=== PATIENT | male | born 1990 | race Caucasian/White ===

== ENCOUNTER 2024-08-17 12:01 | Inpatient (IN) | payer BC, SELFPAY ==
[2024-08-17 08:05] VITALS: BP 145/95
--- NOTE | 2024-08-17 08:13 | ED.GENMED ---
History of Present Illness
General
Chief Complaint: Abdominal Symptoms
Source: patient
Exam Limitations: none
Time Seen by Provider: 08/17/24 08:10
History of Present Illness
History of Present Illness:
See MDM
Past History
Past History
ED Past Medical History: None
ED Past Surgical History: None
Social History
Tobacco: Non-smoker
Alcohol: Occasional
Personal: Single
Living: with family
Employment: Employed
Phy Exam
Physical Exam
Physical Exam:
See MDM
Course
Orders/Labs/Results
Orders:
Orders
08/17/24 08:12
CT Abd/pelvis W Iv Cont Urgent
Comment:
Reason For Exam: lower mid abd pain\\
08/17/24 08:27
Anti Streptolysin Urgent
Complete Blood Count/With Diff Urgent
Comprehensive Metabolic Panel Urgent
Serum Osmolality Urgent
08/17/24 08:58
0.9% Sodium Chloride 1000 ml [Nss] 1,000 ml IV BOLUS
08/17/24 09:52
Consult Nephrology [NEPHROLOGY CONSULT] Routine
Consulting Provider: Rocky Williamson V.
Was physician already notified: Yes
08/17/24 Lunch
Regular
At Your Request: Full Participation
Does patient need a safe tray?: No
08/17/24 10:14
Protein/Creat Ratio (Random) Urgent
Date Specimen was Collected: 08/17/24
Time Specimen was Collected: 10:09
Urinalysis Reflex To Culture Urgent
Date Specimen was Collected: 08/17/24
Time Specimen was Collected: 10:08
Urine Creatinine Urgent
Date Specimen was Collected: 08/17/24
Time Specimen was Collected: 10:09
Urine Microscopic Reflex Cult Urgent
Urine Osmolality Random [Osmolality, Random Urine] Urgent
Date Specimen was Collected: 08/17/24
Time Specimen was Collected: 10:09
Urine Sodium Urgent
Date Specimen was Collected: 08/17/24
Time Specimen was Collected: 10:09
08/17/24 11:11
Add On- LAB R STAT
Tests Added?: urine random protein to creatinine ratio
08/17/24 11:13
Renal & Bladder US [US Renal With Bladder] Routine
Comment:
Reason For Exam: GAURAV
08/17/24 11:30
0.9% Sodium Chloride 1000 ml [Nss] 1,000 ml IV 125 mls/hr
08/17/24 11:45
Admit/Transfer Patient As Directed
Co-Sign Provider:
Level of Care: Inpatient admission
Assign to:: Telemetry
Physician / Group: Moises Velez
Diagnosis: Acute kidney injury
Reason for Telemetry: Arrhythmia
Date to Stop Telemetry: 08/20/24
Time to Stop Telemetry: 11:00
Reason for Hospitalization: Acute kidney injury, likely GN, need
Expected length of stay greater than two midnights?: Yes
ELOS- Estimated Length of Stay in days: 4
I certify the patient meets the requirements for IP care: Yes
PRN Pain Medication Management As Directed
May give lesser potent ordered pain med per pt: Yes
preference::
Protocol:: Medication orders for pain may be administered in a
manner that supports deferring to patient preference
when the pt is:
- Requesting an ordered lesser potent pain medication.
Least to most potent pain medications are defined
as: acetaminophen < NSAID < tramadol < opioids
(morphine, oxycodone, hydromorphone).
- Requesting a lesser dose of the same medication IF
ORDERED.
- Requesting a less intrusive route of administration
if both routes are prescribed by the provider (PO <
IV).
08/17/24 11:46
Code Status As Directed
Resuscitation Status: Full Code
08/17/24 12:00
MethylPREDNISolone. [Solu-Medrol] 1,000 mg 0.9% Sodium Chloride 250 ml [Nss] 250 ml IV DAILY
08/17/24 12:36
BOB, IgG Reflex to HEp-2 [S] Routine
ANCA - MPO/PR3 Ab Profile [S] Routine
CPK [Creatine Phosphokinase] Urgent
Complement C3 Urgent
Complement C4 Urgent
Glomerular Base Membrane Ab [S] Routine
Hepatitis A Antibody, Total Urgent
Hepatitis B Core Ab, Total Urgent
Hepatitis B Surface Antibody Urgent
Hepatitis B Surface Antigen Urgent
Hepatitis C Antibody Urgent
08/17/24 13:01
Acetaminophen [Tylenol] 650 mg PO Q4HPRN PRN
Bisacodyl [Dulcolax] 10 mg RECTAL [id number] PRN
Docusate W/Senna [Senokot-S] 1 tablet PO BIDPRN PRN
Ondansetron Injectable [Zofran] 4 mg IV Q6HPRN PRN
Polyethylene Glycol Powder [Miralax] 17 grams PO DAILYPRN PRN
08/17/24 13:01
Activity As Directed
Activity Level: Out of Bed-Early Mobility
Intake/ Output As Directed
Frequency: q12h
Vital Signs As Directed
Frequency: Per unit guidelines
Weight As Directed
Frequency: Daily
DX Deep Vein Thrombosis Video Routine
08/17/24 16:00
Heparin 5,000 units SC Q8
08/18/24 07:19
Basic Metabolic Panel IN AM
Cardiovascular Evaluation IN AM
Complete Blood Count/With Diff IN AM
Magnesium IN AM
08/20/24 11:00
DC Protocol for Telemetry ONCE
Abnormal Lab Results
08/17/24 08/17/24
08: 10:14
RBC 4.52 L 10^6/uL
(4.70-6.10)
Absolute Neuts (auto) 6.8 H 10^3/uL
(1.4-6.5)
Absolute Monos (auto) 1.0 H 10^3/uL
(0.1-0.6)
Lymphocytes % 18.6 L %
(20.5-51.1)
Monocytes % 9.9 H %
(1.7-9.3)
Chloride 108 H mmol/L
(98-107)
Creatinine 2.0 H mg/dL
(0.7-1.3)
Glucose 109 H mg/dl
(70-99)
Ur Occult Blood Reflex 1+ A
(Negative)
Urine RBC 3-6 A /HPF
(0-2)
Urine Bacteria (Reflex) Few A
(Negative)
Urine Osmolality 126 L mOsm/kg
(300-900)
Urine Sodium 19 L mmol/L
(30-90)
Urine Albumin (Reflex) 3+ A
(Neg - Trace)
Anti-Streptolysin O Ab Positive H
(Negative)
08/17/24 08:27
08/17/24 08:27
Vital Signs
Initial and Last Documented VS:
Initial Vital Signs
Temp Pulse Resp BP Pulse Ox
98.1 F 86 16 145/95 98
08/17/24 08:05 08/17/24 08:05 08/17/24 08:05 08/17/24 08:05 08/17/24 08:05
Last Documented Vital Signs
Temp Pulse Resp BP Pulse Ox
97.7 F 76 18 147/89 96
08/18/24 11:29 08/18/24 11:29 08/18/24 11:29 08/18/24 11:29 08/18/24 11:29
MDM/Problems Addressed
Differential Diagnosis Includes:
HPI and MDM Narrative:
34-year-old male presenting with several days of lower abdominal pain. This is associate with nausea. He saw his primary care doctor and was prescribed Bentyl. Patient states is not helping. He did have a recent bowel movement and does not
believe it could be constipation. He denies urinary symptoms. On exam, he does have mid abdominal tenderness. No palpable hernia. Will obtain CT to rule out early appendicitis
Physical exam
General: Well appearing and non-toxic
HEENT: protecting airway
Neck: appears supple
CV: No evidence of cyanosis
Resp: No accessory muscle use
Abd: Non-distended. Mild mid abdominal tenderness. No rebound
Extremities: No deformities
Neuro: alert
Psych: Normal affect
Skin: Intact
Problems Addressed including Acute and Chronic Conditions affecting care:
1. Abdominal pain
Acuity: acute
Prognosis: stable
Details: Given duration of symptoms, will obtain CT to rule out early appendicitis
2. Acute kidney injury
Acuity: acute
Prognosis: stable
Details: Patient given IV fluids and case discussed with nephrology
Updates
CT negative for acute pathology. Radiology did call indicating that there is poor renal excretion of the IV dye. His GFR is in the 40s. Patient supplied me with blood work was done yesterday showing a GFR of 63. Given the elevating creatinine
and case discussed with renal. Will admit for further workup of GAURAV. IV fluids started
Differential Diagnosis (but not limited to): Appendicitis, muscle strain, constipation, colitis
Testing considered: Urinalysis but denies symptoms
Drug therapy (if applicable): OTC meds, please see d/c instruction regarding Rx drugs
Amount and/or Complexity of Data Reviewed
Clinical info obtained from: Patient
External data reviewed: N/A
Labs I independently reviewed (but not limited to): Elevated creatinine
Radiology: The CT scan was personally and independently reviewed. In addition, official CT report reviewed.
Pulse Ox: not hypoxic
EKG independently reviewed: N/A
Cloud Developer: N/A
Critical Care: N/A
Risk of Complication:
Social Determinants of health: Good social support
Discussed with other providers: Radiologist, nephrology, hospitalist
Escalation of Care includes Admit/Obs: Given the worsening renal function, will admit for nephrology evaluation
Occasional wrong word or 'sound a like' substitutions may have occurred due to the inherent limitations of voice recognition software. Read the chart carefully and recognize, using context, where substitutions have occurred.
*Critical Care Note
Total Time (30-74mins, 75-104mins- exclusive of procedures): Not Applicable
ED Attending Note
-
Portions of this chart may have been created with voice recognition software.� Occasional wrong word or��sound alike� substitutions may have occurred due to the inherent limitations of voice recognition software.
Discharge Plan
Departure
Patient Disposition: Admit
Date of Disposition: 08/17/24
Time of Disposition: 09:58
Admit to: Med/Surg
Presentation/result/management discussed w/ accepting MD/DO: Hospitalist
Discharge Problem:
GAURAV (acute kidney injury)
Interventions
Interventions:
*Risk Screen - Suicide Last Done: 08/17/24 08:07
*General Assessment Last Done: 08/17/24 08:19
*Neglect/Abuse Screening Last Done: 08/17/24 08:07
*ED- Fall Risk Assessment Last Done: 08/17/24 08:19
*ED COVID-19 Vaccine History Last Done: 08/17/24 13:21
*Nursing Disposition Last Done: 08/17/24 13:13
KW-Kqwjop-Fxoxcdazsf Assessment Last Done: 08/17/24 08:19
Discharge Date and Time
Discharge Date/Time: 08/17/24 13:14
[2024-08-17 08:18] VITALS: BMI 31.9
[2024-08-17 08:37] LABS: % Basophils 0.3 % (0-2); % Immature Granulocytes 0.3 % (0-0.5); % Lymphocytes 18.6 % (20.5-51.1); % Monocytes 9.9 % (1.7-9.3); % Neutrophils 69.9 % (42.2-75.2); Absolute Eosinophils 0.1 10^3/uL (0-0.7); Absolute Lymphocytes 1.8 10^3/uL (1.2-3.4); Absolute Neutrophils 6.8 10^3/uL (1.4-6.5); Hematocrit 40.4 % (39.0-52.0); Hemoglobin 13.7 g/dL (13.0-18.0); Mean Corp Hgb Conc. 33.9 g/dL (33.0-37.0); Mean Corpuscular Hgb 30.3 pg (27.0-31.0); Mean Corpuscular Volume 89.4 fL (80.0-94.0); Nucleated Red Blood Cells % 0 % (-); Platelet Count 299 10^3/uL (130-400); Red Blood Cell Count 4.52 10^6/uL (4.70-6.10); Red Cell Dist. Width 12.2 % (11.5-14.5); White Blood Cell Count 9.8 10^3/uL (4.8-10.8)
[2024-08-17 08:47] LABS: ALT (SGPT) 24 U/L (0-50); AST (SGOT) 22 U/L (17-59); Alkaline Phosphatase 88 U/L (38-126); Blood Urea Nitrogen 17 mg/dl (9-20); Calcium 9.4 mg/dl (8.4-10.2); Carbon Dioxide 23 mmol/L (22-30); Chloride 108 mmol/L (98-107); Estimated Creatinine Clearance 61 ml/min; Glucose 109 mg/dl (70-99); Potassium 4.2 mmol/L (3.5-5.1); Sodium 141 mmol/L (135-145); Total Bilirubin 0.9 mg/dl (0.2-1.3); Total Protein 6.7 g/dl (6.3-8.2); eGFR 43.54
[2024-08-17] MEDS: NSS 1000 IV ×3 (09:38→22:43)
[2024-08-17 10:44] LABS: Urine Albumin 3+ (Neg - Trace); Urine Bilirubin Negative (Negative); Urine Character Clear (Clear); Urine Color Yellow; Urine Glucose Negative (Negative); Urine Ketone Negative (Negative); Urine Leukocyte Negative (Negative); Urine Nitrite Negative (Negative); Urine Occult Blood 1+ (Negative); Urine Specific Gravity 1.005 (<1.030); Urine Urobilinogen Negative (Neg - 1+)
[2024-08-17 10:52] LABS: Osmolality Urine 126 mOsm/kg (300-900)
[2024-08-17 10:54] LABS: Urine Urothelial Cell 0-2 /LPF (FEW)
[2024-08-17 10:55] LABS: Urine Bacteria Few (Negative)
--- NOTE | 2024-08-17 10:55 | W.CON.NEPH ---
Consultation
-
Date/Time Consultation Requested: August 17, 2024 at 10 AM
Date/Time Consultation Performed: August 17, 2024 at 11 AM
Requesting Provider: Dr. Acevedo
Performing Provider: Dr. Whiteside
Reason for Consultation: Acute kidney injury
Medical History
-
Chief Complaint: Abdominal pain
History of Present Illness:
34-year-old male presents to the hospital with abdominal pain and acute kidney injury with a creatinine of 2. His creatinine at his primary care doctor's office was 1.4 when he went for assessment of abdominal pain. He has no other past medical
history is not taken any new medication recently. He did take Advil the last 2 days 600 mg for the abdominal pain.
He does not take any supplements or [id number] medications. He drinks on the weekends and did drink more than usual on Wednesday.
urinalysis shows 1+ hematuria with 3-6 red blood cells and 3+ albumin.
He has no difficulty urinating
Past Medical History
Past Medical History: None
Social History
Tobacco: Non-Smoker
Alcohol: Occasional
Family History
No renal disease
Family History: Not Pertinent
Allergies / Home Medications
Allergy/AdvReac Type Severity Reaction Status Date / Time
No Known Allergies Allergy Verified 08/17/24 08:07
�Medication �Instructions �Recorded �Confirmed �Type
dicyclomine 20 mg tablet 20 mg PO BID 08/17/24 08/17/24 History
Review of Systems
-
Mild abdominal pain
All other systems: Negative unless noted
Physical Exam
Vital Signs
Vital Signs
Temp Pulse Resp BP Pulse Ox
98.1 F 86 16 145/95 98
08/17/24 08:05 08/17/24 08:05 08/17/24 08:05 08/17/24 08:05 08/17/24 08:05
Lab Results
WBC 9.8 10^3/uL (4.8-10.8) 08/17/24 08:
RBC 4.52 10^6/uL (4.70-6.10) L 08/17/24 08:
Hgb 13.7 g/dL (13.0-18.0) 08/17/24 08:
Hct 40.4 % (39.0-52.0) 08/17/24 08:
Plt Count 299 10^3/uL (130-400) 08/17/24 08:
Sodium 141 mmol/L (135-145) 08/17/24 08:
Potassium 4.2 mmol/L (3.5-5.1) 08/17/24 08:
Chloride 108 mmol/L (98-107) H 08/17/24 08:
Carbon Dioxide 23 mmol/L (22-30) 08/17/24 08:
BUN 17 mg/dl (9-20) 08/17/24 08:
Creatinine 2.0 mg/dL (0.7-1.3) H 08/17/24 08:
eGFR 43.54 08/17/24 08:
Glucose 109 mg/dl (70-99) H 08/17/24 08:27
Calcium 9.4 mg/dl (8.4-10.2) 08/17/24 08:
Albumin 4.0 g/dl (3.5-5.0) 08/17/24 08:27
Physical Exam
General no acute distress
HEENT no cephalic atraumatic extraocular muscle intact no scleral icterus no JVD neck supple
lungs clear to auscultation bilateral
heart regular S1-S2 positive
abdomen soft nontender positive bowel sounds
extremities no edema pulses present bilateral
Neurologically nonfocal alert and oriented x 3
Skin no lesions no abrasions no petechiae
Psych normal affect no bizarre behavior
Data Reviewed
-
CT Scan: Image Personally Visualized and interpreted (No obstructive uropathy)
Labs: Labs Reviewed by me and Discussed with Patient
Assessment/Plan
-
Impression.
Acute kidney injury with a creatinine of 2 on admission and a creatinine of 1.4 yesterday outpatient records.
Hematuria with proteinuria.
Abdominal pain.
Plan.
Concern for RPGN/hematuria with 3+ albumin(will quantify)
Check CK
Ordered serologies.
Pulse steroids methylprednisolone 1 g daily x 3 days
Likely need renal biopsy.
Continue IV fluids status post 1 L.
Discussed in detail with the patient
[2024-08-17 10:56] LABS: Osmolality Serum 296 mOsm/kg (275-300)
[2024-08-17 11:07] LABS: Urine Sodium 19 mmol/L (30-90)
--- NOTE | 2024-08-17 11:22 | HPS.HSE ---
Family Physician
-
Family Physician: Ave Dunn
Chief Complaint
-
GAURAV, abdomen pain
History of Present Illness
34-year-old male with H/O eustachian tube dysfunction that is presenting to the hospital with several days of lower abdomen pain associated with nausea. Was recently seen by his family doctor who prescribed him Bentyl which did not improve his
symptoms. States he has had normal bowel habitus and denied constipation or urinary symptoms. AFVSS on arrival. Suspicion initially high for appendicitis and CT A/P with contrast was obtained which demonstrated retained contrast suspicious for
bilateral obstructive uropathy versus acute kidney injury. Initial labs with a creatinine 2.0, chloride 108, estimated creatinine clearance 61 with GFR 43.54. Per history had labs done day prior to admission with GFR in the 60's. Urinalysis with
3-6 RBCs per hpf and 3+ albumin. Was started on IV fluids for acute kidney injury.
He denies any recent febrile illnesses. States he had norovirus about 1 month ago and fully recovered. Denies any recent sore throats or coughing. He does mention having recurrent ulcers in his mouth with 1 currently present on the inferior right
labia. States that this is the first time he is had an ulcer on his lip, usually within his gingiva.
He denies any recent travel. Denies any lower extremity edema or reduction to or urine output
He denies any pulmonary symptoms including pleuritic chest pain, shortness of breath, hemoptysis.
He denies any history of of connective tissue diseases. Denies recurrent joint pain, dry mouth or dry eyes.
He states he has a family history of IBD with his sister being affected. He denies any personal history but does complain of chronic IBS-like symptoms with diarrhea and abdomen pain improved with bowel movements though no formal diagnosis.
Medical History
Past Medical History
Past Medical History: Reports Other
Additional Past Medical History:
Eustachian tube dysfunction bilaterally
Obesity
Past Surgical History: Reports None
Social History
Tobacco: Former Smoker
Alcohol: Occasional
Drug: None
Family History
Family History: Other (No history of intrinsic renal disease; sister with IBD)
Allergies / Home Medications
Allergies reflects when Allergies were last updated in [employer].
Home Medications with original date entered in [employer]
Allergy/Medication List:
Allergies
Allergy/AdvReac Type Severity Reaction Status Date / Time
No Known Allergies Allergy Verified 08/17/24 08:07
Home Medications
dicyclomine 20 mg tablet 20 mg PO BID 08/17/24
Review of Systems
-
A 12 point ROS was completed and negative except as noted: Yes
Constitutional: Reports No Symptoms
EENT: Reports No Symptoms
Respiratory: Reports No Symptoms
Cardiac: Reports No Symptoms
Abdomen/GI: Reports See HPI
: Reports See HPI
Musculoskeletal: Reports No Symptoms
Skin: Reports No Symptoms
Neurological: Reports No Symptoms
Endocrine: Reports No Symptoms
Hematologic/Lymphatic: Reports No Symptoms
Psych: Reports No Symptoms
Physical Exam
Vital Signs
Vital Signs
Temp Pulse Resp BP Pulse Ox
98.1 F 86 16 145/95 98
08/17/24 08:05 08/17/24 08:05 08/17/24 08:05 08/17/24 08:05 08/17/24 08:05
Physical Exam
General: Well Developed, Well Nourished and No Apparent Distress
HEENT: NormoCephalic, Anicteric, Moist mucous membranes, PERRLA and Other (White papular lesion of the inferior right labia)
Respiratory: Clear and Non Labored Respirations
Cardiac: S1/S2 and Regular Rhythm; No Murmur, Rub, Gallop, Peripheral Edema or JVD
GI: Soft, Non Tender, Non Distended, Normal Bowel Sounds and No Hepatosplenomegaly
Genito-urinary: No costovertebral tender
Musculoskeletal: No Clubbing, No Cyanosis and Normal Gait & Station
Skin: Warm and Dry; No Rash or Jaundice
Neuro: AO x 3, Nonfocal/grossly intact and Cranial Nerves Intact
Psych: Calm
Laboratory Results
-
08/17/24 08:27
08/17/24 08:
Laboratory Results
Total Bilirubin 0.9 mg/dl (0.2-1.3) 08/17/24 08:
AST 22 U/L (17-59) 08/17/24 08:
ALT 24 U/L (0-50) 08/17/24 08:
Alkaline Phosphatase 88 U/L (38-126) 08/17/24 08:
Data Reviewed
-
Lab Data: Labs Reviewed by me and Discussed with Physician (Nephrology, ED)
Impression/Plan
-
#Acute kidney injury
-Unclear etiology though differentials include obstructive etiology versus intrinsic (nephrotic syndrome versus GN)
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
-CT A/P with contrast showed retained contrast, initial labs with creatinine 2.0, BUN 17, CrCl 61, GFR 43
-Initial urine studies with protein and hematuria concerning for glomerular process, cannot rule out secondary to obstruction
-Possibly that is progressive process with labs from a day ago showing higher GFR in the 60s, compared with GFR to
-Nephrology following, send serological workup with BOB, ANCA, anti-GBM, complement, hepatitis panel, antistreptolysin O and recommended steroid
-Appears fairly euvolemic on exam, no peripheral edema noted; concerned this may worsen after receiving IV contrast in ED
Plan
-Start 1 g Solu-Medrol x 3 days empirically
-Order ultrasound to assess renal parenchyma and further assess for obstruction
-Continue with IV maintenance fluids and ensure hemodynamic stability
-Quantify amount of proteinuria with 24-hour urine protein
-Check CK level; Monitor BMP and UOP closely for signs of oliguria/anuria
-Strict avoidance of nephrotoxins including including iodinated contrast and NSAID
-Follow-up serological workup
-Consider renal biopsy here
#Abdominal pain
#Suspected IBS�D
-Unclear etiology, initial concern for appendicitis however CT A/P was unremarkable for acute process
-Question if this is related to his ongoing renal process however seems more consistent with IBS
-Will continue to monitor clinically, assess bowel habitus and serial abdomen exam
-Trend CBC and temperature curve
-Nontender on exam
#Oral mucosal ulcers
-Patient complains of recurrent ulcers to the oral mucosa
-Currently has 1 ulcer noted at the inferior right labia, first time it has been present outside of the oral cavity
-Lesions appear similar to those seen in HFMD the question that this is related to autoimmune process
-Follow-up serology as above and monitor clinic
#H/O bilateral eustachian tube dysfunction
DVT prophylaxis: Subcutaneous heparin
Diet: Regular, low threshold to transition to renal diet if oliguric
CODE STATUS: Full code
Disposition: Telemetry
[2024-08-17 12:30] LABS: Urine Protein 84 mg/dl
[2024-08-17] MEDS: SOLU-MEDROL 258 MG IV (12:37)
[2024-08-17 13:09] VITALS: BP 161/91
[2024-08-17 13:10] VITALS: BMI 31.6
[2024-08-17 13:15] LABS: Creatine Phosphokinase 63 U/L (55-170)
[2024-08-17 13:32] LABS: Complement C3 146 mg/dl (88-165)
[2024-08-17 14:22] LABS: Protein/creatinine Ratio 1.7
[2024-08-17] MEDS: HEPARIN 5000 UNITS SC ×2 (15:00→23:20)
[2024-08-17] MEDS: MIRALAX 17 GRAMS PO (15:00)
[2024-08-17 15:02] VITALS: BP 167/101
[2024-08-17 16:43] LABS: Anti Streptolysin Positive (Negative)
[2024-08-17 16:59] LABS: ASO Quantitative 200 IU/ml (<200)
[2024-08-17 19:33] LABS: Hepatitis B Surface Antigen Negative (Negative)
[2024-08-17 19:50] LABS: Hepatitis A Antibody, Total Negative (Negative); Hepatitis B Core Ab, Total Negative (Negative); Hepatitis B Surface Antibody Positive; Hepatitis C Antibody Negative (Negative)
[2024-08-17 20:05] VITALS: BP 146/85
[2024-08-17 23:42] VITALS: BP 146/94
[2024-08-18 03:40] VITALS: BP 151/89
--- NOTE | 2024-08-18 03:43 | PTCARENOTE ---
Patient reports no pain. VSS. Normal saline running at 125 ml/hr. Strict I & O. 24 hour urine to start at 0600. Patient appears agitated/frustrated overnight. OOB ad diamante. Hourly rounding with safety checks completed.
[2024-08-18] MEDS: NSS 1000 IV ×2 (04:52→11:48)
[2024-08-18 05:49] VITALS: BMI 31.9
[2024-08-18 07:00] VITALS: BP 161/92
[2024-08-18 07:40] LABS: % Basophils 0.1 % (0-2); % Immature Granulocytes 0.4 % (0-0.5); % Lymphocytes 6.3 % (20.5-51.1); % Neutrophils 91.2 % (42.2-75.2); Absolute Immature Granulocytes 0.1 10^3/uL (0-0.05); Absolute Lymphocytes 0.9 10^3/uL (1.2-3.4); Absolute Monocytes 0.3 10^3/uL (0.1-0.6); Absolute Neutrophils 12.8 10^3/uL (1.4-6.5); Hematocrit 38.5 % (39.0-52.0); Hemoglobin 13.4 g/dL (13.0-18.0); Mean Corp Hgb Conc. 34.8 g/dL (33.0-37.0); Mean Corpuscular Hgb 30.7 pg (27.0-31.0); Mean Corpuscular Volume 88.1 fL (80.0-94.0); Mean Platelet Volume 9.3 fL (7.4-10.4); Nucleated Red Blood Cells % 0 % (-); Platelet Count 265 10^3/uL (130-400); Red Blood Cell Count 4.37 10^6/uL (4.70-6.10); Red Cell Dist. Width 12.2 % (11.5-14.5); White Blood Cell Count 14.1 10^3/uL (4.8-10.8)
[2024-08-18 08:19] LABS: Blood Urea Nitrogen 24 mg/dl (9-20); Calcium 9.2 mg/dl (8.4-10.2); Carbon Dioxide 20 mmol/L (22-30); Chloride 108 mmol/L (98-107); Estimated Creatinine Clearance 68 ml/min; Glucose 174 mg/dl (70-99); HDL Cholesterol 33 mg/dl; LDL Cholesterol, Calculated 151 mg/dl; Magnesium 2.2 mg/dl (1.6-2.3); Potassium 4.5 mmol/L (3.5-5.1); Sodium 141 mmol/L (135-145); Total Cholesterol 204 mg/dl (50-199); Triglyceride 102 mg/dl (10-149); Very Low Density Lipoprotein 20 mg/dl (0-30); eGFR 49.41
[2024-08-18] MEDS: HEPARIN 5000 UNITS SC ×2 (08:55→17:06)
[2024-08-18] MEDS: SOLU-MEDROL 258 MG IV (08:55)
--- NOTE | 2024-08-18 11:27 | W.PN.HOSP.TC ---
Today's Communication/Plan
-
Continue pulse-dose steroid
Start ISS with Accu-Cheks
Follow-up serological studies and 24-hour protein
Consider renal biopsy
Consider AMY inhibitor
Assessment / Plan
Assessment / Plan
#Acute kidney injury
-Highly suspicious for intrinsic glomerulonephritis, possibly PIGN or other causes of RPGN/crescentic disease
-CT A/P with contrast showed retained contrast, initial labs with creatinine 2.0, BUN 17, CrCl 61, GFR 43
-Initial urine studies with protein and hematuria concerning for glomerular process; elevated ASO titer though mildly
-Hepatitis panel was unremarkable, complement levels within normal range to high, no signs of peripheral edema
-Additional workup sent, still pending include: BOB screen, ANCA antibodies, anti-GBM antibody, 24-hour urine protein
-Was started on pulse dose steroids on 08/17, creatinine trend 2.0�1.8
Plan
-Continue pulse dose steroids, day 2/3
-Encourage oral hydration, hold off on further IVF
-Follow-up pending serology and 24-hour urine protein
-Strict avoidance of nephrotoxins including including iodinated contrast and NSAID
-Consider renal biopsy here
-Consider low-dose ACEi
-Start ISS with Accu-Cheks while on high-dose steroid
#Abdominal pain
#Suspected IBS�D
-Unclear etiology, initial concern for appendicitis however CT A/P was unremarkable for acute process
-Question if this is related to his ongoing renal process however seems more consistent with IBS
-Will continue to monitor clinically, assess bowel habitus and serial abdomen exam
-Trend CBC and temperature curve
-Nontender on exam
#Oral mucosal ulcers
-Patient complains of recurrent ulcers to the oral mucosa
-Currently has 1 ulcer noted at the inferior right labia, first time it has been present outside of the oral cavity
-Lesions appear similar to those seen in HFMD the question that this is related to autoimmune process
-Follow-up serology as above and monitor clinic
#H/O bilateral eustachian tube dysfunction
DVT prophylaxis: Subcutaneous heparin
Diet: Regular, low threshold to transition to renal diet if oliguric
CODE STATUS: Full code
Anticipated Discharge: > 48 hours
Subjective/Interval History
-
Date of Service: August 18, 2024
Seen and examined at the bedside. No acute events reported overnight. AFVSS as of this morning, slightly hypertensive
Serology returned positive for antistreptolysin antibody (right at ULN), hepatitis B surface antibody indicative of immunity to HBV, normal to high level of complement. BOB screen, ANCA, anti-GBM antibody pending. Renal function stabilized with
creatinine trend 2.0�1.8
He denies any new complaints as of this morning. States his urine output is good and frequent. Otherwise feels well
Objective Data
-
Labs:
Laboratory Results
08/18/24
07:19
WBC 14.1 H
Hgb 13.4
Hct 38.5 L
Plt Count 265
Sodium 141
Potassium 4.5
Chloride 108 H
Carbon Dioxide 20 L
BUN 24 H
Creatinine 1.8 H
Glucose 174 H
Calcium 9.2
Vital Signs:
Vital Signs
Temp Pulse Resp BP Pulse Ox
98.4 F 65 18 161/92 100
08/18/24 07:00 08/18/24 07:00 08/18/24 07:00 08/18/24 07:00 08/18/24 07:00
I&O
08/17/24 08/18/24 08/19/24
06:59 06:59 06:59
Intake Total 3265 / 3265
Output Total 2510 / 2510 475 / 475
Balance 755 / 755 -475 / -475
Review of Systems
-
History Source: Patient
All other systems: Reviewed and negative
Physical Exam
-
General: Well Developed, No Apparent Distress and Comfortable
HEENT: Normocephalic, Atraumatic, Moist Mucous Membranes and Other (White papular lesion of the right inferior labia)
Respiratory: Clear to Auscultation and Non Labored Respirations
Cardiac: Regular Rhythm and S1/S2; Negative Murmur, Rub or Gallop
GI: Soft, Nontender, Nondistended and Normal Bowel Sounds
Musculoskeletal: No Clubbing, No Cyanosis and No Edema
Skin: Warm and Normal Turgor; Negative Dry or Rash
Neuro: AO x 3 and Nonfocal/Grossly Intact; Negative Tremors
Psych: Calm
Data Reviewed
-
Labs: Labs Reviewed by me, Discussed with Physician (Dump Truck Driver Off Highway) and Discussed with Patient
[2024-08-18 11:29] VITALS: BP 147/89
[2024-08-18 11:41] LABS: Glucose - Point of Care 270 mg/dl (70-99)
[2024-08-18 15:21] VITALS: BP 148/84
--- NOTE | 2024-08-18 16:07 | CM ---
manager fitness reviewed patient's chart and spoke with patient and spouse, patient lives with spouse in a multilevel home, patient is independent with adl's and ambulation, no dme, pait drives, home when stable, no needs.
PCP: Ave Dunn
Pharmacy; [facility]
[2024-08-18 16:48] LABS: Glucose - Point of Care 132 mg/dl (70-99)
--- NOTE | 2024-08-18 18:18 | W.PN.NEPH.PH ---
Today's Communication / Plan
-
see pplan
Assessment/Plan
-
Impression.
Acute kidney injury with a creatinine of 2 on admission and a creatinine of 1.4 yesterday outpatient records.
Hematuria with proteinuria.
Abdominal pain.
Plan.
GAURAV-rapid rise of cr concern of vasculitis
however UA only 3-6rbc with U PCR 1.7gm/gm of cr
normal CK, pending serologies, normal complements.
ASO borderline
Fena was low and U osmo was also low
wean off IVF tonight
on pulse steroid /
if cr cont to improve likely no need of biopsy
would need nephro f/u
BP high possible from steroids, no ACEI yet
d/w pt and at bedside
-
-
Date of Service: August 18, 2024
CC / HPI / ROS
-
Chief Complaint:
GAURAV
History of Present Illness:
cr better at 1.8, non oliguric
BP slightly up
no fever
Review of Systems:
no cp or sob
no n/v
feels slightly puffy in hands and face with IVF
Labs
-
Labs:
WBC 14.1 10^3/uL (4.8-10.8) H 08/18/24 07:19
RBC 4.37 10^6/uL (4.70-6.10) L 08/18/24 07:19
Hgb 13.4 g/dL (13.0-18.0) 08/18/24 07:19
Hct 38.5 % (39.0-52.0) L 08/18/24 07:19
Plt Count 265 10^3/uL (130-400) 08/18/24 07:19
Sodium 141 mmol/L (135-145) 08/18/24 07:19
Potassium 4.5 mmol/L (3.5-5.1) 08/18/24 07:19
Chloride 108 mmol/L (98-107) H 08/18/24 07:19
Carbon Dioxide 20 mmol/L (22-30) L 08/18/24 07:19
BUN 24 mg/dl (9-20) H 08/18/24 07:19
Creatinine 1.8 mg/dL (0.7-1.3) H 08/18/24 07:19
eGFR 49.41 08/18/24 07:19
Glucose 174 mg/dl (70-99) H 08/18/24 07:19
Calcium 9.2 mg/dl (8.4-10.2) 08/18/24 07:19
Albumin 4.0 g/dl (3.5-5.0) 08/17/24 08:27
Physical Exam
-
Vital Signs:
Vital Signs
Temp Pulse Resp BP Pulse Ox
97.8 F 80 18 148/84 100
08/18/24 15:21 08/18/24 15:21 08/18/24 15:21 08/18/24 15:21 08/18/24 15:21
Cardiovascular:: Regular rate and rhythm
Respiratory:: Bilateral: CTA
Lung Excursion:: Normal
Abdomen:: Nontender and Soft
Extremity Edema:: None: Bilateral:
Encarnacion Catheter: No
[2024-08-18 19:33] VITALS: BP 140/80
[2024-08-18 20:59] LABS: Glucose - Point of Care 261 mg/dl (70-99)
[2024-08-18 22:08] VITALS: BP 157/92
[2024-08-19] MEDS: HEPARIN SC
[2024-08-19 03:04] VITALS: BP 145/93
[2024-08-19 05:29] VITALS: BMI 32.5
[2024-08-19 07:09] LABS: % Basophils 0.1 % (0-2); % Immature Granulocytes 0.8 % (0-0.5); % Lymphocytes 6.7 % (20.5-51.1); % Monocytes 5.4 % (1.7-9.3); Absolute Immature Granulocytes 0.1 10^3/uL (0-0.05); Absolute Lymphocytes 1.1 10^3/uL (1.2-3.4); Absolute Monocytes 0.9 10^3/uL (0.1-0.6); Absolute Neutrophils 14.9 10^3/uL (1.4-6.5); Hematocrit 36.1 % (39.0-52.0); Hemoglobin 12.4 g/dL (13.0-18.0); Mean Corp Hgb Conc. 34.3 g/dL (33.0-37.0); Mean Corpuscular Hgb 30.5 pg (27.0-31.0); Mean Corpuscular Volume 88.9 fL (80.0-94.0); Mean Platelet Volume 9.9 fL (7.4-10.4); Nucleated Red Blood Cells % 0 % (-); Platelet Count 276 10^3/uL (130-400); Red Blood Cell Count 4.06 10^6/uL (4.70-6.10); Red Cell Dist. Width 12.3 % (11.5-14.5); White Blood Cell Count 17.1 10^3/uL (4.8-10.8)
[2024-08-19 07:29] LABS: Blood Urea Nitrogen 26 mg/dl (9-20); Calcium 9.4 mg/dl (8.4-10.2); Carbon Dioxide 21 mmol/L (22-30); Chloride 110 mmol/L (98-107); Estimated Creatinine Clearance 77 ml/min; Glucose 151 mg/dl (70-99); Potassium 4.7 mmol/L (3.5-5.1); Sodium 143 mmol/L (135-145); eGFR 56.91
[2024-08-19] MEDS: HEPARIN 5000 UNITS SC (07:31)
[2024-08-19] MEDS: SOLU-MEDROL 258 MG IV (07:31)
[2024-08-19 07:32] LABS: 24 Hour Urine Total Volume 5850 ml
[2024-08-19 07:36] LABS: Glucose - Point of Care 147 mg/dl (70-99)
[2024-08-19 07:57] VITALS: BP 164/98
[2024-08-19 08:01] LABS: 24 Hour Urine Protein 1111.5 mg/day (42-225); Urine Protein 19 mg/dl (0-12)
[2024-08-19 11:21] VITALS: BP 156/98
[2024-08-19 11:48] LABS: Glucose - Point of Care 142 mg/dl (70-99)
--- NOTE | 2024-08-19 12:54 | W.PN.HOSP.TC ---
Today's Communication/Plan
-
Discharge today
Transition to oral steroid
Strict avoidance of NSAIDs and nephrotoxic agents as OP
BMP in 5 days as an OP
Follow-up in office with fitter machinist
Assessment / Plan
Assessment / Plan
#Acute kidney injury
#Unspecified glomerulonephritis
-Highly suspicious for intrinsic glomerulonephritis, possibly PIGN or other causes of RPGN/crescentic disease
-CT A/P with contrast showed retained contrast, initial labs with creatinine 2.0, BUN 17, CrCl 61, GFR 43
-Initial urine studies with protein and hematuria concerning for glomerular process; elevated ASO titer though mildly
-Hepatitis panel was unremarkable, complement levels within normal range to high, no signs of peripheral edema
-Additional workup sent, still pending include: BOB screen, ANCA antibodies, anti-GBM antibody, 24-hour urine protein
-Was started on pulse dose steroids on 08/17, creatinine trend 2.0�1.8�1.6
-Nephrology following, mentions he may not need biopsy if function improving on steroid
Plan
-Last day of pulse dose steroid, will transition to oral regimen at DC
-Encourage oral hydration, hold off on further IVF
-Follow-up pending serology and 24-hour urine protein as OP
-Strict avoidance of nephrotoxins including including iodinated contrast and NSAID
-Start ISS with Accu-Cheks while on high-dose steroid
-Consider low-dose ACEi and kidney biopsy as OP
#Abdominal pain
#Suspected IBS�D
-Unclear etiology, initial concern for appendicitis however CT A/P was unremarkable for acute process
-Question if this is related to his ongoing renal process however seems more consistent with IBS
-Will continue to monitor clinically, assess bowel habitus and serial abdomen exam
-Denies any symptomatology suspicious for inflammatory bowel disease
-Trend CBC and temperature curve
-Nontender on exam
#Oral mucosal ulcers
-Patient complains of recurrent ulcers to the oral mucosa
-Currently has 1 ulcer noted at the inferior right labia, first time it has been present outside of the oral cavity
-Lesions appear similar to those seen in [facility] the question that this is related to autoimmune process
-Follow-up serology as above and monitor clinic
#H/O bilateral eustachian tube dysfunction
DVT prophylaxis: Subcutaneous heparin
Diet: Regular
CODE STATUS: Full code
Anticipated Discharge: Today
Subjective/Interval History
-
Date of Service: August 19, 2024
Seen and examined at the bedside. No acute events overnight. AFVSS this morning
Renal function continued to improve with BUN 26, creatinine down to 1.4 this morning. Leukocytosis in the context of steroids.
He states he feels well today and denies any new complaints. States he is urinating well, 5-6 times per day without hematuria.
States he would like to be discharged today
Objective Data
-
Labs:
Laboratory Results
08/19/24
06:29
WBC 17.1 H
Hgb 12.4 L
Hct 36.1 L
Plt Count 276
Sodium 143
Potassium 4.7
Chloride 110 H
Carbon Dioxide 21 L
BUN 26 H
Creatinine 1.6 H
Glucose 151 H
Calcium 9.4
Vital Signs:
Vital Signs
Temp Pulse Resp BP Pulse Ox
98.2 F 67 18 156/98 96
08/19/24 11:21 08/19/24 11:21 08/19/24 11:21 08/19/24 11:21 08/19/24 11:21
I&O
08/18/24 08/19/24 08/20/24
06:59 06:59 07:59
Intake Total 3265 / 3265 3360 / 3360
Output Total 2510 / 2510 6450 / 6450
Balance 755 / 755 -3090 / -3090
Review of Systems
-
History Source: Patient
All other systems: Reviewed and negative
Physical Exam
-
General: Well Developed, No Apparent Distress and Obese
HEENT: Normocephalic, Atraumatic and Moist Mucous Membranes
Respiratory: Clear to Auscultation and Non Labored Respirations
Cardiac: Regular Rhythm and S1/S2; Negative Murmur, Rub or Gallop
GI: Soft, Nontender, Nondistended and Normal Bowel Sounds
Musculoskeletal: No Clubbing, No Cyanosis and No Edema
Skin: Warm, Dry and Normal Turgor; Negative Rash
Neuro: AO x 3 and Nonfocal/Grossly Intact; Negative Tremors
Psych: Calm
--- NOTE | 2024-08-19 14:17 | W.PN.NEPH.PH ---
Today's Communication / Plan
-
ok for d/c
Assessment/Plan
-
Impression.
Acute kidney injury with a creatinine of 2 on admission and a creatinine of 1.4 yesterday outpatient records.
Hematuria with proteinuria.
Abdominal pain.
Plan.
GAURAV-rapid rise of cr concern of vasculitis
however UA only 3-6rbc with U PCR 1.7gm/gm of cr
normal CK, pending serologies, normal complements.
ASO borderline
Fena was low and U osmo was also low
cr cont to improve to 1.6
completed pulse steroid, quick wean of steroids
no need of biopsy at this time
would need nephro f/u , BMP on Wednesday
BP high possible from steroids, no ACEI yet
d/w pt and at bedside
d/w primary
-
-
Date of Service: August 19, 2024
CC / HPI / ROS
-
Chief Complaint:
GAURAV
History of Present Illness:
cr better at 1.6, non oliguric
BP slightly up
no fever
Review of Systems:
no cp or sob
no n/v
Labs
-
Labs:
WBC 17.1 10^3/uL (4.8-10.8) H 08/19/24 06:29
RBC 4.06 10^6/uL (4.70-6.10) L 08/19/24 06:29
Hgb 12.4 g/dL (13.0-18.0) L 08/19/24 06:29
Hct 36.1 % (39.0-52.0) L 08/19/24 06:29
Plt Count 276 10^3/uL (130-400) 08/19/24 06:29
Sodium 143 mmol/L (135-145) 08/19/24 06:29
Potassium 4.7 mmol/L (3.5-5.1) 08/19/24 06:29
Chloride 110 mmol/L (98-107) H 08/19/24 06:29
Carbon Dioxide 21 mmol/L (22-30) L 08/19/24 06:29
BUN 26 mg/dl (9-20) H 08/19/24 06:29
Creatinine 1.6 mg/dL (0.7-1.3) H 08/19/24 06:29
eGFR 56.91 08/19/24 06:29
Glucose 151 mg/dl (70-99) H 08/19/24 06:29
Calcium 9.4 mg/dl (8.4-10.2) 08/19/24 06:29
Albumin 4.0 g/dl (3.5-5.0) 08/17/24 08:27
Physical Exam
-
Vital Signs:
Vital Signs
Temp Pulse Resp BP Pulse Ox
98.2 F 67 18 156/98 96
08/19/24 11:21 08/19/24 11:21 08/19/24 11:21 08/19/24 11:21 08/19/24 11:21
Cardiovascular:: Regular rate and rhythm
Respiratory:: Bilateral: CTA
Lung Excursion:: Normal
Abdomen:: Nontender and Soft
Extremity Edema:: None: Bilateral:
Encarnacion Catheter: No
--- NOTE | 2024-08-19 14:39 | CM ---
CM reviewed chart, patient seen bedside with , discussed plan for discharge. Patient confirms home no needs, has transportation. CM will continue to follow for all discharge planning needs.
Plan; home no needs.
--- NOTE | 2024-08-19 16:09 | W.DCSUMMARY ---
Discharge Summary
Discharge Data
Date of Admission: 08/17/24
Date of Discharge: 08/19/24
Total time spent discharging patient (in min): 35
-
Pending Results: Yes
Additional Pending Results:
BOB screen, ANCA, anti-GBM antibody
Hospital Course
Discharging Physician : Moises Velez DO
Disposition : Home
Principal Discharge diagnosis :
Acute kidney injury
Glomerulonephritis/vasculitis, unspecified
Positive ASO antibody
Presumed IBS-D
HLD
Chronic Discharge diagnosis :
Former smoker
Hospital Course : 34-year-old male former smoker that presented to the hospital with a complaint of abdomen pain. Initial concerns for acute abdomen in the ED and CT A/P with contrast was performed that did not show any acute intra-abdominal
findings. CT scan did demonstrate retention of IV contrast suspicious for acute renal injury. Follow-up BMP demonstrated creatinine 2.0 with previous baseline in the normal range. Initial urine studies did show proteinuria and microscopic
hematuria concerning for glomerulonephritis. Evaluated by nephrology in the ED who sent hepatitis antibody screening, serology for BOB, ANCA's, anti-GBM, complement protein, antistreptolysin O antibody. BOB, ANCA, GBM antibody pending at time of
discharge. Complements levels were normal. Hepatitis panel came back positive for HBV surface antibody demonstrating immunity without active infection. Antistreptolysin O antibody did come back positive however titers 200 right at the upper
normal limit. Initial concern for rapidly progressive glomerulonephritis of unclear etiology, was started on pulse dose steroids for 3 days while in hospital. His renal function improved slowly on steroid regimen, creatinine down trended from
2.0-1.6 with remainder of BMP unremarkable. Developed a demargination reaction with leukocytosis from steroids. Nephrology decided against hospital kidney biopsy due to improving renal function and only mild RBC and protein on urine studies.
24-hour urinalysis with proteinuria subthreshold for nephrotic syndrome. No signs of oliguria, had normal urine output throughout hospital stay. At time of discharge was transitioned over to Solu-Medrol Dosepak to complete steroid regimen.
Directed to have labs performed on Wednesday to recheck kidney function and follow-up outpatient with nephrology for further consideration of kidney biopsy.
Consultants:
Loyda Aguillon MD -- Nephrology
Important imaging findings :
CT A/P with IV contrast (08/17/2024)
IMPRESSION: Limited evaluation of intestinal tract without oral contrast, without intestinal obstruction or free air. Unremarkable appendix. No findings to suggest obstructive uropathy bilaterally. Faint symmetric bilateral renal excretion and mild
bilateral perinephric stranding in this patient with known decreased GFR, as described. RECOMMEND FOLLOW-UP RENAL BLOOD WORK INCLUDING GFR over the next several days as GAURAV is possible.
Renal ultrasound (08/17/2024)
FINDINGS: Right kidney length is 12.3 cm and left kidney length is 12.0 cm. There is no evidence for pelvicalyceal dilation bilaterally. Slight prominence of the pyramids bilaterally suggesting that the cortex of both kidneys may be slightly
increased in echogenicity, nonspecific finding seen with medical renal disease. The bladder has initial volume of 270 cc with no focal abnormality. Right ureteral jet is visualized with no left ureteral jet seen. Post void bladder residual of 13.8
cc.
Procedure findings : N/A
Follow up:
BMP on 08/21 to reassess kidney function
Office visit with senior systems administrator week after discharge (repeat labs, consider steroid duration and need for Bx)
Follow-up with family doctor within 1 to 2 weeks (consider statin with LDL 151)
Discharge Plan
-
Patient Disposition: Home (Routine Discharge)
Discharge Diagnosis/Procedures: Acute kidney injury
Unspecified glomerulonephritis/vasculitic disorder
Abdomen pain suspicious for IBS�D
Condition: Fair
Diet: No added salt
Additional Diets: Avoid NSAIDs (ibuprofen, naproxen, meloxicam, Motrin, aspirin). Can take Tylenol for mild pains
Activity: As tolerated
Driving Restrictions: No driving for 24 hours
Bathing Restrictions: None
Blood Work: BMP on 08/21 to recheck your kidney function
Activity Restrictions/Additional Instructions:
Schedule follow-up appointment with your family physician. Should be seen in office within 1 week of discharge from the hospital
Nephrology referral provided. Contact nephrology office to schedule an appointment within the next week
Instructions: Glomerular disease
Referrals:
Ave Dunn PA [Family Provider] -
Loyda Aguillon MD [Active] - in less than 1 week
Additional Discharge Medication Instructions: Take methylprednisolone Dosepak as indicated on packaging
Prescriptions:
New
methylprednisolone [Medrol (Caesar)] 4 mg tablets,dose pack
4 mg PO DAILY 7 Days Qty: 1 0RF
Continued
dicyclomine 20 mg Tablet
20 mg PO BID
Discharge Orders:
Discharge Patient (As Directed); Ordered 08/19/24
Ordered By: Moises Velez
Discharge Date and Time
Discharge Date/Time: 08/19/24 14:56
Print Language: GEORGIAN
[2024-08-20 03:16] LABS: ANA, IgG Reflex to HEp-2 None Detected (None Detected)
[2024-08-21 08:01] LABS: Glomerular Base Membrane Ab 0 AU/mL (0-19); Myeloperoxidase Antibody 0 AU/mL (0-19); Serine Protease-3, IgG 7 AU/mL (0-19)
== END 2024-08-19 14:56 | disposition home or self-care (01) | DRG 684 ==
LOC: 4 WEST ACU 12:01
PROVIDERS: Internal Medicine Nephrology; ADMITTING PHYSICIAN Internal Medicine; CONSULT PHYSICIAN Specialist; EMERGENCY PHYSICIAN Student in an Organized Health Care Education/Training Program; FAMILY PHYSICIAN Physician Assistant Medical
DX: N17.9 Acute kidney failure, unspecified (principal); N05.9 Unspecified nephritic syndrome with unspecified morphologic changes; E66.9 Obesity, unspecified; K12.1 Other forms of stomatitis; R10.9 Unspecified abdominal pain; Z87.891 Personal history of nicotine dependence; Z68.32 Body mass index [BMI] 32.0-32.9, adult
CPT/HCPCS: 74177; 76770; 80048; 80053; 80061; 81003; 81015; 81050; 82550; 82570; 82962; 83516; 83735; 83930; 83935; 84156; 84300; 85025; 86038; 86060; 86063; 86160; 86704; 86706; 86708; 86803; 87340; 96360; 99285; Q9967